=== PATIENT | female | born 1955 | race Caucasian/White ===

== ENCOUNTER 2018-05-26 02:00 | Emergency (ER) | payer SELFPAY ==
[2018-05-26 02:30] VITALS: BMI 24.9
--- NOTE | 2018-05-26 03:07 | PDOC ---
History of Present Illness - General Chief Complaint: Pain Stated Complaint: FALL/DIFF BREATHING Time Seen by Provider: 05/26/18 03:06 History Source: Patient Exam Limitations: No Limitations - History of Present Illness Initial Comments: 62 yo F w no sig pmh presents to the ER with right sided rib pain and shortness of breath associated with difficulty breathing after she fell down from a chair on Saturday and landed on her ribs. She has been taking ibuprofen and aleve for the rib pain but it has not gone away and now she is having a hard time breathing so she came into the ER to be evaluated. She denies having a fever or coughing. She denies any nausea, vomiting, fevers, chills, infections, headache, blurry vision, back pain, dysuria, frequency, urgency or leg pain. PCP: Ko Mohamud PSH: , appendectomy Social Hx: Denies smoking, drinking, or other substance usage. Allergies: NKA, NKDA Past History - Past Medical History Allergies/Adverse Reactions: Allergies Allergy/AdvReac Type Severity Reaction Status Date / Time No Known Allergies Allergy Verified 05/26/18 02:26 COPD: No - Surgical History Appendectomy: Yes - Suicide/Smoking/Psychosocial Hx Smoking Status: Yes Smoking History: Current every day smoker Have you smoked in the past 12 months: Yes Number of Cigarettes Smoked Daily: 10 Information on smoking cessation initiated: No Hx Alcohol Use: No Drug/Substance Use Hx: No Review of Systems - Review of Systems Able to Perform ROS?: Yes Comments:: CONSTITUTIONAL: Absent: fever, no chills, no fatigue EYES: Absent: visual changes ENT: Absent: ear pain, no sore throat CARDIOVASCULAR: Present: Chest pain Absent: no palpitations RESPIRATORY: Present: SOB Absent: cough GI: Present: Abdominal pain Absent: no nausea, no vomiting, no constipation, no diarrhea GENITOURINARY: Absent: dysuria, no frequency, no hematuria MUSKULOSKELETAL: Present: Back pain, arthralgia Absent: no myalgia SKIN: Absent: rash NEURO: Absent: headache *Physical Exam - Vital Signs Last Vital Signs Temp Pulse Resp BP Pulse Ox 98.0 F 103 H 20 127/75 96 05/26/18 02:27 05/26/18 02:27 05/26/18 02:27 05/26/18 02:27 05/26/18 02:27 - Physical Exam Comments: GENERAL: Well-appearing, well-nourished. Moderate distress. HEENT: Normocephalic, atraumatic. PERRL, EOM intact. CARDIOVASCULAR: Normal S1, S2. Tachycardic rate and regular rhythm. RIBS: Significant pain to palpation of multiple ribs on the right. PULMONARY: Clear evidence of respiratory distress. Decreased breath sounds on the right side. No wheezing, rales or rhonchi. ABDOMEN: Abdomen is tense. non-distended, normal BS and still soft. EXTREMITIES: Normal ROM in all four extremities. No gross deformities. SKIN: Warm, dry. No rash NEUROLOGICAL: No focal neurological deficits. Moderate Sedation - Procedure Monitoring Vital Signs: Procedure Monitoring Vital Signs Temperature 98.0 F 05/26/18 02:27 Pulse Rate 103 H 05/26/18 02:27 Respiratory Rate 20 05/26/18 02:27 Blood Pressure 127/75 05/26/18 02:27 O2 Sat by Pulse Oximetry (%) 96 05/26/18 02:27 ED Treatment Course - LABORATORY CBC & Chemistry Diagram: 05/26/18 03:40 05/26/18 03:40 Medical Decision Making - Medical Decision Making 62 yo F w no sig pmh presents to the ER with right sided rib pain and shortness of breath associated with difficulty breathing after she fell down from a chair on Saturday and landed on her ribs. She has been taking ibuprofen and aleve for the rib pain but it has not gone away and now she is having a hard time breathing so she came into the ER to be evaluated. She denies having a fever or coughing. DDx IBNLT: Rib fractures, pneumonia, pneumothorax Plan: labs, EKG, x-rays, CT ribs, analgesia, re-assess. CT shows R sided pleural effusion, possible atelectasis, and questionable PNA Patient feels much better after analgesia. Will DC with strict return precautions. *DC/Admit/Observation/Transfer Diagnosis at time of Disposition: Atelectasis of right lung, Pleural effusion - Discharge Dispostion Disposition: HOME Condition at time of disposition: Stable Decision to Admit order: No - Referrals Referrals: Ko Mohamud MD [Staff Physician] - - Patient Instructions Printed Discharge Instructions: Atelectasis, DI for Pleural Effusion, DI for Rib Fracture, DI for Pneumonia -- Adult Additional Instructions: You came into the Er with right sided rib pain. We did a cat scan which showed some fluid in the bottom of your lungs. It is important to take adequate pain meds so that you don't get a lung infection. Make sure to schedule a follow up appointment with your primary care doctor in the next 24 to 48 hours so that you are being watched over and taken care of. Come back to the ER if your pain worsens, you can't breathe, get a fever, start vomiting, or have ay other new or worsening concerns. Thank you for coming to the [facility] ER. We hope you feel better soon! Print Language: GREEK - Post Discharge Activity
[2018-05-26] MEDS ORDERED: morphine CARPU-JECT 4 MG/1 ML DISP.SYRIN IVPUSH ONE (03:12)
[2018-05-26] MEDS ORDERED: ACETAMINOPHEN 1000 MG/100 ML VIAL (NON FORMULARY) IVPB ONE (03:12)
--- NOTE | 2018-05-26 03:15 | PDOC ---
Attending Attestation - Resident Resident Name: Redd Thomas - ED Attending Attestation I have performed the following: I have examined & evaluated the patient, The case was reviewed & discussed with the resident, I agree w/resident's findings & plan - HPI HPI: 05/31/18 00:27 Pt comes with right rib pain. States that she fell and that the pain is causing her to splint and not take deep breaths. She has no fever or chills. No other chest pain or palpitations. - Physicial Exam PE: 05/31/18 00:28 Agree with resident exam - Medical Decision Making 05/26/18 04:58 Patient Name: DWIGHT ZUNIGA THIS IS A PRELIMINARY REPORT FROM [facility] DATE OF SERVICE: 2018-05-26 04:45:24 IMAGES: [id number] EXAM: CHEST CT WITHOUT CONTRAST HISTORY: Right rib pain COMPARISON: None. FINDINGS: There is no aortic aneurysm. There is is mild prevascular adenopathy. The heart size is normal. The trachea and bronchi are patent. There is no pericardial effusion. There is a small right pleural effusion with compressive atelectasis and/or pneumonia. No rib fractures identified. Upper abdominal structures are normal. IMPRESSION: Small right pleural effusion with compressive atelectasis or pneumonia. 05/31/18 00:28 Pt has a normal exam; normal CT scan; she has some slight atelectasis. Pt advised to take pain meds and when mes are in effect, to take deep breaths. Pt understands that she needs to return for fever or chills or worsening symptoms. Heart Score/ECG Review - ECG Intrepretation Rhythm: Regular Rhythm - P and MA Prominent R with upright T in V1 (true posterior IN): No Delta Wave(s) Present: No WPW: No - QRS Poor R Wave Progression: No Q Wave Present: No - ST and T Early Repolarization: No Non Specific ST-T Wave changes: No Flattened T Waves: No Prolonged Q-T Interval: No - ECG Impressions Normal ECG: Yes Non-specific ST Elevation: No Ischemic Changes: No
[2018-05-26] MEDS ORDERED: MORPHINE SULFATE 2 MG/ML VIAL ONE (03:47)
[2018-05-26] MEDS ORDERED: ACETAMINOPHEN INJECTION 100 ML IVPB ONE (03:47)
[2018-05-26 03:52] LABS: BASO % 0.8 % (0-2.0); EOS % 6.2 % (0-4.5); HEMATOCRIT 36.3 % (32.4-45.2); HEMOGLOBIN 12.6 GM/dL (10.7-15.3); LYMPH % 16.3 % (8-40); MCH 32.7 pg (25.7-33.7); MCHC 34.7 g/dl (32.0-36.0); MEAN CELL VOLUME 94.2 fl (80-96); MEAN PLT VOLUME 9.9 fl (7.5-11.1); MONO % 10.1 % (3.8-10.2); NEUT % 66.6 % (42.8-82.8); PLATELET COUNT 260 K/MM3 (134-434); RBC 3.85 M/mm3 (3.60-5.2); RDW 13.5 % (11.6-15.6); WHITE BLOOD COUNT 9.4 K/mm3 (4.0-10.0)
[2018-05-26 04:26] LABS: ALBUMIN 3.5 g/dl (3.4-5.0); ALK PHOS 88 U/L (45-117); ANION GAP 5 MMOL/L (8-16); BILIRUBIN,TOTAL 0.3 mg/dL (0.2-1); BLOOD UREA NITROGEN 8 mg/dL (7-18); CALCIUM 8.6 mg/dL (8.5-10.1); CHLORIDE 111 mmol/L (98-107); CO2 27 mmol/L (21-32); CREATININE 0.8 mg/dL (0.55-1.3); GLUCOSE,RANDOM 101 mg/dL (74-106); LIPASE 118 U/L (73-393); POTASSIUM 4.6 mmol/L (3.5-5.1); SGOT/AST 16 U/L (15-37); SGPT/ALT 20 U/L (13-61); SODIUM 144 mmol/L (136-145); TOT PROT 6.8 g/dl (6.4-8.2)
[2018-05-26 06:31] VITALS: BP 115/71; PULSE 77; TEMP 97.9
--- NOTE | 2018-05-26 09:50 | EKG ---
Test Reason : Blood Pressure : / mmHG Vent. Rate : 079 BPM Atrial Rate : 079 BPM P-R Int : 158 ms QRS Dur : 076 ms QT Int : 378 ms P-R-T Axes : 058 060 051 degrees QTc Int : 433 ms NORMAL SINUS RHYTHM NORMAL ECG NO PREVIOUS ECGS AVAILABLE Confirmed by JULIÁN NAYLOR MD ([id number]) on 05/26/2018 9:49:43 AM Referred By: Confirmed By:JULIÁN NAYLOR MD
== END 2018-05-26 06:31 | disposition home or self-care (01) ==
LOC: JER 02:00
PROC: 3E033NZ Introduction of Analgesics, Hypnotics, Sedatives into Peripheral Vein, Percutaneous Approach (ICD-10-PCS; principal; 2018-05-26)
PROC: 3E033NZ Introduction of Analgesics, Hypnotics, Sedatives into Peripheral Vein, Percutaneous Approach (ICD-10-PCS; 2018-05-26)
DX: J98.11 Atelectasis (principal); J90 Pleural effusion, not elsewhere classified; W07.XXXA Fall from chair, initial encounter; Y93.89 Activity, other specified; Y92.89 Other specified places as the place of occurrence of the external cause; Y99.8 Other external cause status
CPT/HCPCS: 36415; 71250-TC; 80053; 83690; 84484; 85025; 93005; 93010; 99283-25; J0131